=== PATIENT | male | born 1975 | race Hispanic/Latino ===

== ENCOUNTER 2021-09-05 10:12 | Outpatient (CLI) | payer OTHER ==
[2021-09-05 19:53] LABS: SARS-CoV-2 PCR by NAA Not Detected (NotDetected)
== END 2021-09-05 10:13 | disposition home or self-care (01) ==
LOC: CSHLAB 10:12
PROVIDERS: ATTEND Chiropractor
DX: Z20.822 Contact with and (suspected) exposure to COVID-19 (principal)
CPT/HCPCS: U0003; U0005

== ENCOUNTER 2021-09-08 13:02 | Outpatient (CLI) | payer OTHER | END 2021-09-08 13:03 | disposition home or self-care (01) | LOC: CSHCP 13:02 | PROVIDERS: ATTEND Chiropractor | DX: R05.3 Chronic cough (principal) | CPT/HCPCS: 71046; 94060; 94760 ==